=== PATIENT | female | born 1945 | race Caucasian/White ===

== ENCOUNTER 2020-12-18 13:01 | Inpatient (IN) | payer MEDICARE ==
[2020-12-18 13:47] LABS: Bacteria/HPF 4+ HPF (None Seen); Bilirubin Negative (Negative); Blood, Urine 3+ (Negative); Clarity Extra Turbid (Clear); Glucose, Urine (Dipstick) Normal (Negative); Ketone, Urine Negative (Negative); Leukocyte 500 Leu/uL (Negative); Nitrite Negative (Negative); Protein, Urine (Dipstick) 300 mg/dL (Neg-Trace); RBC/HPF Greater than 50 HPF (0-3); Specific Gravity, Urine 1.011 (1.002-1.036); Squamous Epithelial None Seen HPF (0-3); Urobilinogen Normal mg/dL (Less than 2); WBC/HPF Greater than 50 HPF (0-3)
[2020-12-18 14:08] LABS: Hemoglobin 12.2 g/dL (12.0-16.0); Mean Corpuscular HGB CONC 32.7 g/dL (32.0-36.0); Mean Corpuscular Hemoglobin 29.7 pg (27.0-31.0); Mean Platelet Volume 6.6 fL (7.4-10.4); Platelet Count 369 thou/uL (130-400); RBC Distribution Width 12.7 % (11.5-14.5); Red Blood Cell (RBC) Count 4.12 mill/uL (4.20-5.40); White Blood Cell (WBC) Count 20.5 thou/uL (4.8-10.8)
[2020-12-18 14:12] LABS: ALT (SGPT) 69 U/L (8-55); AST (SGOT) 133 U/L (5-34); Albumin 3.5 g/dL (3.4-4.8); Alkaline Phosphatase 169 U/L (40-110); Anion Gap 22 mmol/L (10-20); BUN (Urea Nitrogen) 45 mg/dL (9.8-20.1); Bilirubin, Total 0.4 mg/dL (0.2-1.2); Calc. Creatinine Clearance 0 mL/min (70-130); Calcium 8.8 mg/dL (7.8-10.44); Carbon Dioxide 19 mmol/L (23-31); Chloride 103 mmol/L (98-107); Globulin 2.9 g/dL (2.4-3.5); Glucose 144 mg/dL (83-110); Potassium 3.8 mmol/L (3.5-5.1); Protein, Total 6.4 g/dL (5.8-8.1); Sodium 140 mmol/L (136-145)
[2020-12-18 14:25] LABS: Band 38 % (5-11); Lymphocytes 7 % (21-51); MDiff Complete? YES; Monocytes 3 % (0-10); Neutrophil 48 % (42-75); Reactive Lymphocytes 3 % (0-10)
[2020-12-18 14:30] LABS: CK (CPK) 5973 U/L (29-168)
[2020-12-18] MEDS ORDERED: Ondansetron PF 4 MG/2 ML Vial IVP PRN (16:02)
[2020-12-18] MEDS ORDERED: Aspirin Chewable 81 MG TAB ONE (16:02)
[2020-12-18] MEDS ORDERED: Morphine 2 MG/ML VIAL SLOW IVP PRN (16:03)
[2020-12-18] MEDS ORDERED: Nitroglycerin 0.4 MG TAB (25 Tab Bottle) SL PRN (16:06)
[2020-12-18 19:01] LABS: Troponin I 1.987 ng/mL (< 0.028)
[2020-12-18 22:55] LABS: Critical Call Chem Troponin I DECREASING; Troponin I 1.808 ng/mL (< 0.028)
[2020-12-18] MEDS ORDERED: Melatonin 3 MG TAB PO SCH (23:45)
[2020-12-18] MEDS: Acetaminophen 325 MG TAB PO PRN (23:47)
[2020-12-18] MEDS: Sodium Chloride 0.9% 1,000 ML IV SCH (23:48)
[2020-12-19 03:28] LABS: SARS-CoV-2 NAA Rapid Test Not Detected (NotDetected)
[2020-12-19 05:04] LABS: #Lymphocytes 1.9 thou/uL (1.20-3.40); #Monocytes 0.8 thou/uL (0.11-0.59); #Neutrophils 12.8 thou/uL (1.40-6.50); %Basophils 0.1 % (0.0-1.0); %Eosinophils 0.1 % (0.0-10.0); %Monocytes 5.4 % (0.0-10.0); %Neutrophils 82.4 % (42.0-75.0); Hemoglobin 10.6 g/dL (12.0-16.0); Mean Corpuscular HGB CONC 33.4 g/dL (32.0-36.0); Mean Corpuscular Hemoglobin 30.2 pg (27.0-31.0); Mean Corpuscular Volume 90.4 fL (78.0-98.0); Mean Platelet Volume 6.6 fL (7.4-10.4); Platelet Count 358 thou/uL (130-400); RBC Distribution Width 12.7 % (11.5-14.5); Red Blood Cell (RBC) Count 3.52 mill/uL (4.20-5.40); White Blood Cell (WBC) Count 15.6 thou/uL (4.8-10.8)
[2020-12-19 05:19] LABS: ALT (SGPT) 76 U/L (8-55); AST (SGOT) 150 U/L (5-34); Alkaline Phosphatase 133 U/L (40-110); Anion Gap 13 mmol/L (10-20); BUN (Urea Nitrogen) 39 mg/dL (9.8-20.1); Bilirubin, Direct 0.2 mg/dL (0.1-0.3); Bilirubin, Total 0.3 mg/dL (0.2-1.2); Calc. Creatinine Clearance 49 mL/min (70-130); Calcium 8.6 mg/dL (7.8-10.44); Carbon Dioxide 25 mmol/L (23-31); Cardiac Risk 3.4 (Less than 4.5); Chloride 107 mmol/L (98-107); Cholesterol 171 mg/dl (< 200 Desired); Glucose 99 mg/dL (83-110); HDL Cholesterol 50 mg/dL (>60 Neg Risk); LDL Cholesterol, Calculated 97 mg/dL; Potassium 3.4 mmol/L (3.5-5.1); Protein, Total 5.9 g/dL (5.8-8.1); Sodium 142 mmol/L (136-145); Triglycerides 122 mg/dL (Less than 150)
[2020-12-19 05:32] LABS: CK (CPK) 5454 U/L (29-168)
[2020-12-19] MEDS: Sodium Chloride 0.9% 1,000 ML IV SCH ×3 (06:27→21:14)
[2020-12-19] MEDS: Potassium Chloride 20 MEQ TAB PO SCH ×2 (09:03→17:13)
[2020-12-19] MEDS: Aspirin 325 mg Enteric Coated Tablet PO SCH (13:37)
[2020-12-19] MEDS: Enoxaparin Sodium 40 MG/0.4 ML SYRINGE SC SCH (13:37)
[2020-12-19] MEDS ORDERED: Polyethylene Glycol 3350 17 GM Packet PO PRN (14:00)
[2020-12-19] MEDS: Melatonin 3 MG TAB PO PRN (21:10)
[2020-12-19] MEDS: HYDROcodone/Acetaminophen 5/325 mg Tablet PO PRN (21:10)
[2020-12-20 04:35] LABS: #Monocytes 0.6 thou/uL (0.11-0.59); #Neutrophils 10.5 thou/uL (1.40-6.50); %Basophils 0.3 % (0.0-1.0); %Eosinophils 0.3 % (0.0-10.0); %Lymphocytes 15.5 % (21.0-51.0); %Monocytes 4.8 % (0.0-10.0); %Neutrophils 79.1 % (42.0-75.0); Hemoglobin 10.8 g/dL (12.0-16.0); Mean Corpuscular HGB CONC 33.2 g/dL (32.0-36.0); Mean Corpuscular Hemoglobin 29.7 pg (27.0-31.0); Mean Corpuscular Volume 89.6 fL (78.0-98.0); Mean Platelet Volume 6.4 fL (7.4-10.4); Platelet Count 387 thou/uL (130-400); RBC Distribution Width 12.8 % (11.5-14.5); Red Blood Cell (RBC) Count 3.63 mill/uL (4.20-5.40); White Blood Cell (WBC) Count 13.2 thou/uL (4.8-10.8)
[2020-12-20] MEDS ORDERED: Electrolyte Replacement Protocol 1 EACH FS SCH (04:45)
[2020-12-20 04:58] LABS: ALT (SGPT) 81 U/L (8-55); AST (SGOT) 114 U/L (5-34); Alkaline Phosphatase 140 U/L (40-110); Anion Gap 14 mmol/L (10-20); BUN (Urea Nitrogen) 23 mg/dL (9.8-20.1); Bilirubin, Total 0.3 mg/dL (0.2-1.2); CK (CPK) 3032 U/L (29-168); Calc. Creatinine Clearance 66 mL/min (70-130); Calcium 8.3 mg/dL (7.8-10.44); Carbon Dioxide 22 mmol/L (23-31); Chloride 112 mmol/L (98-107); Globulin 3.1 g/dL (2.4-3.5); Glucose 119 mg/dL (83-110); Magnesium 1.9 mg/dL (1.6-2.6); Phosphorus 2.6 mg/dL (2.3-4.7); Potassium 3.8 mmol/L (3.5-5.1); Protein, Total 6.1 g/dL (5.8-8.1); Sodium 144 mmol/L (136-145)
[2020-12-20] MEDS ORDERED: Magnesium 2 GM/50 ML 2 GM in Premix Bag 1 BAG IVPB SCH (06:30)
[2020-12-20] MEDS: Sodium Chloride 0.9% 1,000 ML IV SCH (06:54)
[2020-12-20] MEDS: Multivit, Therapeutic 1 TAB PO SCH (08:21)
[2020-12-20] MEDS: Enoxaparin Sodium 40 MG/0.4 ML SYRINGE SC SCH (08:21)
[2020-12-20] MEDS: Potassium Chloride 20 MEQ TAB PO SCH ×2 (08:21→15:43)
[2020-12-20] MEDS: Aspirin 325 mg Enteric Coated Tablet PO SCH (08:21)
[2020-12-20] MEDS ORDERED: Communication Order-Pharmacy FS SCH (15:00)
[2020-12-20] MEDS: NS 0.9% w/ 20 MEQ KCL 1,000 ML IV SCH (15:42)
[2020-12-20] MEDS: Melatonin 3 MG TAB PO PRN (22:19)
[2020-12-20] MEDS: HYDROcodone/Acetaminophen 5/325 mg Tablet PO PRN (22:19)
[2020-12-21] MEDS ORDERED: Sodium Chloride 0.9% 250 ML IV SCH ×2 (00:01→13:15)
[2020-12-21 04:29] LABS: #Eosinphils 0.1 thou/uL (0.0-0.7); #Lymphocytes 2.2 thou/uL (1.20-3.40); #Monocytes 0.4 thou/uL (0.11-0.59); #Neutrophils 5.9 thou/uL (1.40-6.50); %Basophils 0.1 % (0.0-1.0); %Eosinophils 1.7 % (0.0-10.0); %Lymphocytes 25.3 % (21.0-51.0); %Neutrophils 68.9 % (42.0-75.0); Mean Corpuscular HGB CONC 33.5 g/dL (32.0-36.0); Mean Corpuscular Hemoglobin 30.1 pg (27.0-31.0); Mean Corpuscular Volume 89.8 fL (78.0-98.0); Mean Platelet Volume 6.4 fL (7.4-10.4); Platelet Count 338 thou/uL (130-400); RBC Distribution Width 12.9 % (11.5-14.5); Red Blood Cell (RBC) Count 3.31 mill/uL (4.20-5.40); White Blood Cell (WBC) Count 8.6 thou/uL (4.8-10.8)
[2020-12-21 04:49] LABS: ALT (SGPT) 65 U/L (8-55); AST (SGOT) 63 U/L (5-34); Albumin 2.8 g/dL (3.4-4.8); Alkaline Phosphatase 122 U/L (40-110); Anion Gap 11 mmol/L (10-20); BUN (Urea Nitrogen) 17 mg/dL (9.8-20.1); Bilirubin, Total 0.3 mg/dL (0.2-1.2); CK (CPK) 1521 U/L (29-168); Calc. Creatinine Clearance 74 mL/min (70-130); Calcium 7.8 mg/dL (7.8-10.44); Carbon Dioxide 22 mmol/L (23-31); Chloride 112 mmol/L (98-107); Globulin 2.8 g/dL (2.4-3.5); Glucose 103 mg/dL (83-110); Magnesium 2.1 mg/dL (1.6-2.6); Phosphorus 2.5 mg/dL (2.3-4.7); Potassium 3.9 mmol/L (3.5-5.1); Protein, Total 5.6 g/dL (5.8-8.1); Sodium 141 mmol/L (136-145)
[2020-12-21] MEDS: Aspirin 325 mg Enteric Coated Tablet PO SCH (05:53)
[2020-12-21] MEDS: Multivit, Therapeutic 1 TAB PO SCH (05:54)
[2020-12-21] MEDS: NS 0.9% w/ 20 MEQ KCL 1,000 ML IV SCH ×2 (07:05→12:08)
[2020-12-21] MEDS ORDERED: Iopamidol 370 76% 100 ML VIAL ONE (10:54)
[2020-12-21] MEDS ORDERED: Cyanocobalamin 1000 MCG/ML VIAL IM SCH (12:15)
[2020-12-21] MEDS ORDERED: Lidocaine 1% (PF) 30 ML VIAL ONE (12:26)
[2020-12-21] MEDS ORDERED: Fentanyl 100 MCG/2 ML VIAL ONE ×2 (12:52→13:08)
[2020-12-21] MEDS ORDERED: Midazolam HCl 2 mg/2 ml Vial ONE (12:52)
[2020-12-21] MEDS ORDERED: Acetaminophen/Codeine 30-300mg Tablet PO PRN (13:14)
[2020-12-21] MEDS ORDERED: Sodium Chloride 0.9% 200 ML IV PRN (13:14)
[2020-12-21] MEDS: Acetaminophen 325 MG TAB PO PRN (21:05)
[2020-12-21] MEDS: Melatonin 3 MG TAB PO PRN (21:05)
[2020-12-22] MEDS: Multivit, Therapeutic 1 TAB PO SCH (09:07)
[2020-12-22] MEDS: Aspirin 81 mg Enteric Coated Tablet PO SCH (09:07)
[2020-12-22] MEDS: Cyanocobalamin (Vitamin B-12) 1,000 MCG TAB PO SCH (09:07)
[2020-12-22] MEDS ORDERED: Simethicone Chewable 80 MG TAB PO PRN (12:22)
[2020-12-22] MEDS ORDERED: Polyethylene Glycol 3350 17 GM Packet PO PRN (12:22)
[2020-12-22] MEDS: Acetaminophen 325 MG TAB PO PRN (20:46)
[2020-12-22] MEDS: Melatonin 3 MG TAB PO PRN (20:46)
[2020-12-22] MEDS: Senokot S 8.6-50 MG TAB PO SCH (20:46)
[2020-12-23 04:56] LABS: #Eosinphils 0.2 thou/uL (0.0-0.7); #Lymphocytes 2.3 thou/uL (1.20-3.40); #Monocytes 0.7 thou/uL (0.11-0.59); #Neutrophils 5.8 thou/uL (1.40-6.50); %Basophils 0.3 % (0.0-1.0); %Eosinophils 1.9 % (0.0-10.0); %Lymphocytes 25.3 % (21.0-51.0); %Monocytes 7.6 % (0.0-10.0); %Neutrophils 64.9 % (42.0-75.0); Hemoglobin 11.2 g/dL (12.0-16.0); Mean Corpuscular HGB CONC 32.7 g/dL (32.0-36.0); Mean Corpuscular Hemoglobin 29.8 pg (27.0-31.0); Mean Platelet Volume 6.4 fL (7.4-10.4); Platelet Count 374 thou/uL (130-400); Red Blood Cell (RBC) Count 3.76 mill/uL (4.20-5.40); White Blood Cell (WBC) Count 8.9 thou/uL (4.8-10.8)
[2020-12-23 05:23] LABS: Phosphorus 3.7 mg/dL (2.3-4.7)
[2020-12-23 05:25] LABS: Anion Gap 13 mmol/L (10-20); BUN (Urea Nitrogen) 18 mg/dL (9.8-20.1); CK (CPK) 511 U/L (29-168); Calc. Creatinine Clearance 78 mL/min (70-130); Calcium 8.4 mg/dL (7.8-10.44); Carbon Dioxide 23 mmol/L (23-31); Chloride 107 mmol/L (98-107); Glucose 111 mg/dL (83-110); Magnesium 1.7 mg/dL (1.6-2.6); Potassium 3.5 mmol/L (3.5-5.1); Sodium 139 mmol/L (136-145)
[2020-12-23] MEDS ORDERED: Magnesium 2 GM/50 ML 2 GM in Premix Bag 1 BAG IVPB SCH ×2 (07:30)
[2020-12-23] MEDS ORDERED: Potassium Chloride 20 MEQ TAB PO SCH ×2 (07:30)
[2020-12-23] MEDS: Senokot S 8.6-50 MG TAB PO SCH ×2 (08:17→20:35)
[2020-12-23] MEDS: Aspirin 81 mg Enteric Coated Tablet PO SCH (08:19)
[2020-12-23] MEDS: Cyanocobalamin (Vitamin B-12) 1,000 MCG TAB PO SCH (08:20)
[2020-12-23] MEDS: Amiodarone 450 MG in Dextrose 5% in Water 250 ML IVPB SCH ×2 (08:34→17:23)
[2020-12-23] MEDS: Acetaminophen 325 MG TAB PO PRN ×2 (10:23→20:37)
[2020-12-23] MEDS: Multivit, Therapeutic 1 TAB PO SCH (11:26)
[2020-12-23] MEDS ORDERED: Enoxaparin Sodium 80 MG/0.8 ML SYRINGE SC SCH ×2 (18:00→21:00)
[2020-12-23] MEDS: Enoxaparin Sodium 80 MG/0.8 ML SYRINGE SC SCH ×2 (18:10→20:34)
[2020-12-23] MEDS: Melatonin 3 MG TAB PO PRN (20:36)
[2020-12-24 05:23] LABS: Hemoglobin 11.2 g/dL (12.0-16.0); Platelet Count 381 thou/uL (130-400)
[2020-12-24 05:25] LABS: #Eosinphils 0.2 thou/uL (0.0-0.7); #Lymphocytes 2.2 thou/uL (1.20-3.40); #Monocytes 0.7 thou/uL (0.11-0.59); #Neutrophils 6.5 thou/uL (1.40-6.50); %Basophils 0.4 % (0.0-1.0); %Eosinophils 2.4 % (0.0-10.0); %Lymphocytes 22.4 % (21.0-51.0); %Monocytes 7.6 % (0.0-10.0); %Neutrophils 67.3 % (42.0-75.0); Mean Corpuscular HGB CONC 33.1 g/dL (32.0-36.0); Mean Corpuscular Hemoglobin 30.2 pg (27.0-31.0); Mean Corpuscular Volume 91.4 fL (78.0-98.0); Mean Platelet Volume 6.6 fL (7.4-10.4); Platelet Count 372 thou/uL (130-400); RBC Distribution Width 13.2 % (11.5-14.5); Red Blood Cell (RBC) Count 3.65 mill/uL (4.20-5.40); White Blood Cell (WBC) Count 9.7 thou/uL (4.8-10.8)
[2020-12-24 05:45] LABS: Anion Gap 12 mmol/L (10-20); BUN (Urea Nitrogen) 21 mg/dL (9.8-20.1); Calc. Creatinine Clearance 75 mL/min (70-130); Carbon Dioxide 24 mmol/L (23-31); Chloride 104 mmol/L (98-107); Glucose 104 mg/dL (83-110); Magnesium 2.1 mg/dL (1.6-2.6); Phosphorus 3.4 mg/dL (2.3-4.7); Potassium 3.5 mmol/L (3.5-5.1); Sodium 136 mmol/L (136-145)
[2020-12-24] MEDS ORDERED: Potassium Chloride 20 MEQ TAB PO SCH ×3 (06:15→17:00)
[2020-12-24] MEDS ORDERED: Enoxaparin Sodium 80 MG/0.8 ML SYRINGE SC SCH (09:00)
[2020-12-24] MEDS: Senokot S 8.6-50 MG TAB PO SCH ×2 (09:39→20:49)
[2020-12-24] MEDS: Multivit, Therapeutic 1 TAB PO SCH (09:40)
[2020-12-24] MEDS: Aspirin 81 mg Enteric Coated Tablet PO SCH (09:40)
[2020-12-24] MEDS: Enoxaparin Sodium 80 MG/0.8 ML SYRINGE SC SCH ×2 (09:41→20:48)
[2020-12-24] MEDS: Cyanocobalamin (Vitamin B-12) 1,000 MCG TAB PO SCH (09:41)
[2020-12-24] MEDS: Amiodarone 450 MG in Dextrose 5% in Water 250 ML IVPB SCH (09:51)
[2020-12-24] MEDS ORDERED: Simethicone Chewable 80 MG TAB PO PRN (10:25)
[2020-12-24 14:14] VITALS: BMI 31.0
[2020-12-24] MEDS: Acetaminophen 325 MG TAB PO PRN (20:49)
[2020-12-24] MEDS: Melatonin 3 MG TAB PO PRN (20:50)
[2020-12-25] MEDS: Acetaminophen 325 MG TAB PO PRN (04:04)
[2020-12-25] MEDS: Enoxaparin Sodium 80 MG/0.8 ML SYRINGE SC SCH (08:26)
[2020-12-25] MEDS: Cyanocobalamin (Vitamin B-12) 1,000 MCG TAB PO SCH (08:27)
[2020-12-25] MEDS: Aspirin 81 mg Enteric Coated Tablet PO SCH (08:27)
[2020-12-25] MEDS: Multivit, Therapeutic 1 TAB PO SCH (08:27)
[2020-12-25] MEDS: Senokot S 8.6-50 MG TAB PO SCH (08:27)
[2020-12-25 16:05] VITALS: BP 119/59; TEMP 98.2
== END 2020-12-25 18:15 | DRG 871 ==
LOC: ERS 13:01 → ERHOLD 16:37 → 2NO 22:33
PROVIDERS: ADMIT Internal Medicine; ATTEND Internal Medicine
PROC: 4A023N7 Measurement of Cardiac Sampling and Pressure, Left Heart, Percutaneous Approach (ICD-10-PCS; principal; 2020-12-21)
PROC: B2111ZZ Fluoroscopy of Multiple Coronary Arteries using Low Osmolar Contrast (ICD-10-PCS; 2020-12-21)
PROC: B2151ZZ Fluoroscopy of Left Heart using Low Osmolar Contrast (ICD-10-PCS; 2020-12-21)
PROC: 0T9B70Z Drainage of Bladder with Drainage Device, Via Natural or Artificial Opening (ICD-10-PCS; 2020-12-21)
DX: A41.51 Sepsis due to Escherichia coli [E. coli] (principal); I21.A1 Myocardial infarction type 2; N17.9 Acute kidney failure, unspecified; M62.82 Rhabdomyolysis; I42.0 Dilated cardiomyopathy; N13.6 Pyonephrosis; I51.81 Takotsubo syndrome; R65.20 Severe sepsis without septic shock; Z20.822 Contact with and (suspected) exposure to COVID-19; R94.5 Abnormal results of liver function studies; R29.898 Other symptoms and signs involving the musculoskeletal system; N18.2 Chronic kidney disease, stage 2 (mild); M25.511 Pain in right shoulder; M25.521 Pain in right elbow; E53.8 Deficiency of other specified B group vitamins; I48.0 Paroxysmal atrial fibrillation; E66.9 Obesity, unspecified; R55 Syncope and collapse; E87.6 Hypokalemia; E83.42 Hypomagnesemia; Z85.41 Personal history of malignant neoplasm of cervix uteri; Z88.0 Allergy status to penicillin; Z90.89 Acquired absence of other organs; Z82.49 Family history of ischemic heart disease and other diseases of the circulatory system; Z68.31 Body mass index [BMI] 31.0-31.9, adult
CPT/HCPCS: 36415; 51701; 70450; 70551; 71045; 72125; 76770; 80048; 80053; 80061; 80076; 81003; 81015; 82550; 82553; 82607; 82746; 83735; 84100; 84484; 85014; 85018; 85025; 85049; 87077; 87086; 87186; 93005; 93010; 93306; 93458; 93798; 93880; 94760; 95816; 95819; 96365; 96366; 99152; J0282; J1650; J1956; J2001; J2250; J2405; J3010; J3420; J3475; J3480; J7070; Q9967; U0002

== ENCOUNTER 2021-09-05 21:54 | Inpatient (IN) | payer MEDICARE ==
[2021-09-05 22:53] LABS: #Eosinphils 0.1 thou/uL (0.0-0.7); #Monocytes 0.7 thou/uL (0.11-0.59); #Neutrophils 6.5 thou/uL (1.40-6.50); %Eosinophils 1.3 % (0.0-10.0); %Lymphocytes 21.2 % (21.0-51.0); %Monocytes 7.8 % (0.0-10.0); %Neutrophils 69.8 % (42.0-75.0); Hemoglobin 9.6 g/dL (12.0-16.0); Mean Corpuscular HGB CONC 33.2 g/dL (32.0-36.0); Mean Corpuscular Hemoglobin 31.4 pg (27.0-31.0); Mean Corpuscular Volume 94.5 fL (78.0-98.0); Mean Platelet Volume 5.9 fL (7.4-10.4); Platelet Count 316 thou/uL (130-400); RBC Distribution Width 11.4 % (11.5-14.5); Red Blood Cell (RBC) Count 3.05 mill/uL (4.20-5.40); White Blood Cell (WBC) Count 9.4 thou/uL (4.8-10.8)
[2021-09-05 23:14] LABS: ALT (SGPT) 12 U/L (8-55); AST (SGOT) 12 U/L (5-34); Albumin 3.7 g/dL (3.4-4.8); Alkaline Phosphatase 88 U/L (40-110); Anion Gap 10 mmol/L (10-20); BUN (Urea Nitrogen) 30 mg/dL (9.8-20.1); Bilirubin, Total 0.3 mg/dL (0.2-1.2); Calc. Creatinine Clearance 0 mL/min (70-130); Calcium 8.9 mg/dL (7.8-10.44); Carbon Dioxide 30 mmol/L (23-31); Chloride 101 mmol/L (98-107); Globulin 2.9 g/dL (2.4-3.5); Glucose 107 mg/dL (83-110); Potassium 3.9 mmol/L (3.5-5.1); Protein, Total 6.6 g/dL (5.8-8.1); Sodium 137 mmol/L (136-145)
[2021-09-05 23:14] LABS: Bilirubin Negative (Negative); Blood, Urine Large (Negative); Glucose, Urine (Dipstick) Negative (Negative); Ketone, Urine Negative (Negative); Leukocyte Negative (Negative); Nitrite Negative (Negative); Protein, Urine (Dipstick) > or equal to 300 mg/dL (Neg-Trace); Specific Gravity, Urine 1.025 (1.005-1.030); Urobilinogen 0.2 mg/dL (Less than 2); pH, Urine 7.5 (5.0-9.0)
[2021-09-05 23:16] LABS: Clarity Clear (Clear)
[2021-09-05 23:17] LABS: RBC/HPF Greater than 50 HPF (0-3)
[2021-09-05] MEDS ORDERED: cefTRIAXone\\ROCEPHIN 2 GM VIAL ONE (23:24)
[2021-09-06] MEDS ORDERED: Ondansetron ODT 4 MG TAB SL PRN (01:15)
[2021-09-06] MEDS ORDERED: Acetaminophen 325 MG TAB PO PRN (01:15)
[2021-09-06] MEDS ORDERED: Ondansetron PF 4 MG/2 ML Vial IVP PRN ×2 (01:15→08:39)
[2021-09-06 01:41] VITALS: BMI 25.7
[2021-09-06 07:21] LABS: #Eosinphils 0.1 thou/uL (0.0-0.7); #Lymphocytes 1.8 thou/uL (1.20-3.40); #Monocytes 0.7 thou/uL (0.11-0.59); #Neutrophils 5.3 thou/uL (1.40-6.50); %Basophils 0.2 % (0.0-1.0); %Lymphocytes 22.9 % (21.0-51.0); %Monocytes 8.4 % (0.0-10.0); %Neutrophils 67.6 % (42.0-75.0); Hemoglobin 8.5 g/dL (12.0-16.0); Mean Corpuscular HGB CONC 33.9 g/dL (32.0-36.0); Mean Corpuscular Hemoglobin 31.8 pg (27.0-31.0); Platelet Count 279 thou/uL (130-400); RBC Distribution Width 11.1 % (11.5-14.5); Red Blood Cell (RBC) Count 2.68 mill/uL (4.20-5.40); White Blood Cell (WBC) Count 7.9 thou/uL (4.8-10.8)
[2021-09-06 07:48] LABS: Anion Gap 14 mmol/L (10-20); BUN (Urea Nitrogen) 26 mg/dL (9.8-20.1); Calc. Creatinine Clearance 37 mL/min (70-130); Calcium 8.3 mg/dL (7.8-10.44); Carbon Dioxide 25 mmol/L (23-31); Chloride 103 mmol/L (98-107); Glucose 108 mg/dL (83-110); Potassium 3.8 mmol/L (3.5-5.1); Sodium 138 mmol/L (136-145)
[2021-09-06] MEDS ORDERED: Sodium Chloride 0.9% 500 ML IV SCH (08:30)
[2021-09-06] MEDS ORDERED: Ondansetron ODT 4 MG TAB PO PRN (08:39)
[2021-09-06 09:02] LABS: INR-International Normal Ratio 1.4; Prothrombin Time 17.3 sec (12.0-14.7)
[2021-09-06 12:09] LABS: Hemoglobin 8.5 g/dL (12.0-16.0)
[2021-09-06 12:33] LABS: SARS-CoV-2 PCR by NAA Not Detected (NotDetected)
[2021-09-06 17:52] LABS: Hemoglobin 7.8 g/dL (12.0-16.0)
[2021-09-06 20:18] LABS: Hemoglobin 7.8 g/dL (12.0-16.0)
[2021-09-06] MEDS: cefTRIAXone\\ROCEPHIN 1 GM in Sodium Chloride 0.9% 100 ML IVPB SCH (22:07)
[2021-09-06] MEDS: Melatonin 3 MG TAB PO PRN (22:15)
[2021-09-06] MEDS: Acetaminophen 325 MG TAB PO PRN (22:15)
[2021-09-07 01:00] LABS: Hemoglobin 7.2 g/dL (12.0-16.0)
[2021-09-07 06:48] LABS: #Lymphocytes 1.7 thou/uL (1.20-3.40); #Neutrophils 5.5 thou/uL (1.40-6.50); %Basophils 0.1 % (0.0-1.0); %Eosinophils 1.8 % (0.0-10.0); %Lymphocytes 21.2 % (21.0-51.0); %Monocytes 9.2 % (0.0-10.0); %Neutrophils 67.7 % (42.0-75.0); Mean Corpuscular HGB CONC 32.9 g/dL (32.0-36.0); Mean Corpuscular Hemoglobin 30.4 pg (27.0-31.0); Mean Corpuscular Volume 92.2 fL (78.0-98.0); Mean Platelet Volume 5.9 fL (7.4-10.4); Platelet Count 263 thou/uL (130-400); RBC Distribution Width 14.3 % (11.5-14.5); Red Blood Cell (RBC) Count 2.98 mill/uL (4.20-5.40); White Blood Cell (WBC) Count 8.1 thou/uL (4.8-10.8)
[2021-09-07 06:49] LABS: #Eosinphils 0.1 thou/uL (0.0-0.7); #Monocytes 0.8 thou/uL (0.11-0.59)
[2021-09-07 07:07] LABS: Anion Gap 12 mmol/L (10-20); BUN (Urea Nitrogen) 22 mg/dL (9.8-20.1); Calc. Creatinine Clearance 39 mL/min (70-130); Carbon Dioxide 25 mmol/L (23-31); Chloride 107 mmol/L (98-107); Glucose 93 mg/dL (83-110); Potassium 3.6 mmol/L (3.5-5.1); Sodium 140 mmol/L (136-145)
[2021-09-07 07:31] LABS: Platelet Count 261 thou/uL (130-400)
[2021-09-07] MEDS: Multivit, Therapeutic 1 TAB PO SCH (08:58)
[2021-09-07] MEDS: Cyanocobalamin (Vitamin B-12) 1,000 MCG TAB PO SCH (08:58)
[2021-09-07] MEDS: Senokot S 8.6-50 MG TAB PO SCH ×2 (08:59→20:14)
[2021-09-07] MEDS: cefTRIAXone\\ROCEPHIN 1 GM in Sodium Chloride 0.9% 100 ML IVPB SCH (20:14)
[2021-09-07] MEDS: Acetaminophen 325 MG TAB PO PRN (22:31)
[2021-09-07] MEDS: Melatonin 3 MG TAB PO PRN (22:31)
[2021-09-08] MEDS: Senokot S 8.6-50 MG TAB PO SCH (08:25)
[2021-09-08] MEDS: Multivit, Therapeutic 1 TAB PO SCH (08:25)
[2021-09-08] MEDS: Cyanocobalamin (Vitamin B-12) 1,000 MCG TAB PO SCH (08:25)
[2021-09-08 09:17] VITALS: BP 122/71; TEMP 97.9
== END 2021-09-08 17:49 | disposition home or self-care (01) | DRG 699 ==
LOC: ERS 21:54 → T4-B 09-06 00:01 → OBSVTOIN 09-06 08:39
PROVIDERS: ADMIT Internal Medicine; ATTEND Internal Medicine
PROC: 3E1K78Z Irrigation of Genitourinary Tract using Irrigating Substance, Via Natural or Artificial Opening (ICD-10-PCS; principal; 2021-09-06)
PROC: 30233N1 Transfusion of Nonautologous Red Blood Cells into Peripheral Vein, Percutaneous Approach (ICD-10-PCS; 2021-09-07)
DX: N30.41 Irradiation cystitis with hematuria (principal); D62 Acute posthemorrhagic anemia; I42.8 Other cardiomyopathies; I51.81 Takotsubo syndrome; N13.6 Pyonephrosis; Z20.822 Contact with and (suspected) exposure to COVID-19; Y84.2 Radiological procedure and radiotherapy as the cause of abnormal reaction of the patient, or of later complication, without mention of misadventure at the time of the procedure; I48.0 Paroxysmal atrial fibrillation; Z90.89 Acquired absence of other organs; Z79.01 Long term (current) use of anticoagulants; Z88.0 Allergy status to penicillin; Z79.82 Long term (current) use of aspirin; Z85.41 Personal history of malignant neoplasm of cervix uteri
CPT/HCPCS: 36415; 36430; 51701; 74176; 80048; 80053; 81003; 81015; 85014; 85018; 85025; 85610; 85730; 86850; 86900; 86901; 87086; 96365; G0378; J0696; J3490; P9016; U0003; U0005

== ENCOUNTER 2021-12-08 14:12 | Outpatient (CLI) | payer MEDICARE ==
[2021-12-08 15:10] LABS: Hemoglobin 10.9 g/dL (12.0-15.5); Mean Corpuscular HGB CONC 32.5 g/dL (32.0-36.0); Mean Corpuscular Hemoglobin 30.1 pg (27.0-33.0); Mean Corpuscular Volume 92.5 fl (81.6-98.3); Mean Platelet Volume 8.9 fl (7.4-10.4); Platelet Count 291 10x3/uL (150-450); RBC Distribution Width 12.3 % (11.5-14.5); Red Blood Cell (RBC) Count 3.62 10x6/uL (3.90-5.03); White Blood Cell (WBC) Count 8.1 10x3/uL (3.5-10.5)
[2021-12-08 15:17] LABS: Bilirubin Neg (Negative); Blood, Urine 250 (Negative); Clarity Slightly Cloudy (Clear); Glucose, Urine (Dipstick) Normal (Negative); Ketone, Urine Negative (Negative); Leukocyte 500 (Negative); Nitrite Positive (Negative); Protein, Urine (Dipstick) 15 mg/dl (Neg-Trace); Urobilinogen Normal mg/dL (Less than 2)
[2021-12-08 15:21] LABS: INR-International Normal Ratio 0.9; PTT 24.6 sec (22.0-33.0); Prothrombin Time 10.3 sec (9.5-12.1)
[2021-12-08 15:26] LABS: ALT (SGPT) 12 U/L (8-55); AST (SGOT) 14 U/L (5-34); Alkaline Phosphatase 92 U/L (40-110); Anion Gap 13 mmol/L (10-20); BUN (Urea Nitrogen) 27 mg/dL (9.8-20.1); Bilirubin, Total 0.3 mg/dL (0.2-1.2); Calc. Creatinine Clearance 0 mL/min (70-130); Calcium 9.2 mg/dL (7.8-10.44); Carbon Dioxide 29 mmol/L (23-31); Chloride 102 mmol/L (98-107); Globulin 2.4 g/dL (2.4-3.5); Glucose 97 mg/dL (83-110); Potassium 3.9 mmol/L (3.5-5.1); Protein, Total 6.4 g/dL (5.8-8.1); Sodium 140 mmol/L (136-145)
[2021-12-09 08:39] LABS: SARS-CoV-2 PCR by NAA Not Detected (NotDetected)
== END 2021-12-08 14:13 | disposition home or self-care (01) ==
LOC: LABBT 14:12
PROVIDERS: ATTEND Internal Medicine Cardiovascular Disease
DX: Z01.818 Encounter for other preprocedural examination (principal); I48.0 Paroxysmal atrial fibrillation; R31.9 Hematuria, unspecified; Z20.822 Contact with and (suspected) exposure to COVID-19
CPT/HCPCS: 80053; 81003; 85027; 85610; 85730; 86850; 86870; 86900; 86901; 86920; 93005; U0003; U0005; 86905; 93010

== ENCOUNTER 2021-12-08 14:15 | Inpatient (IN) | payer MEDICARE ==
[2021-12-08 11:46] VITALS: BMI 27.4
[2021-12-13] MEDS ORDERED: Iopamidol 370 76% 100 ML VIAL ONE (08:46)
[2021-12-13] MEDS ORDERED: Protamine Sulfate 50 MG/5 ML VIAL ONE (12:51)
[2021-12-13] MEDS ORDERED: Heparin 10,000 UNITS/ 10 ML VIAL ONE (12:51)
[2021-12-13] MEDS ORDERED: Clindamycin/D5W 900 mg/50 ml Premix Bag ONE (12:51)
[2021-12-13] MEDS ORDERED: Glycopyrrolate 0.2 MG/ML 5 ML SYRINGE ONE (13:52)
[2021-12-13] MEDS ORDERED: PROPOFOL 200 MG/20 ML VIAL ONE (13:52)
[2021-12-13] MEDS ORDERED: Rocuronium Bromide 10 MG/ML (10ML VIAL) ONE (13:52)
[2021-12-13] MEDS ORDERED: Lidocaine 1% PF 5 ML VIAL ONE (13:52)
[2021-12-13] MEDS ORDERED: PHENYLEPHRINE-NS 100 MCG/ML 10 ML SYRINGE ONE (13:52)
[2021-12-13] MEDS ORDERED: Ketorolac Tromethamine 30 MG/ML VIAL ONE (13:52)
[2021-12-13] MEDS ORDERED: ePHEDrine 50 MG/ML VIAL ONE (13:52)
[2021-12-13] MEDS ORDERED: Ondansetron PF 4 MG/2 ML Vial ONE (13:52)
[2021-12-13] MEDS ORDERED: Dexamethasone 20 MG/5 ML VIAL ONE (13:52)
== END 2021-12-13 19:22 | disposition home or self-care (01) | DRG 274 ==
LOC: SURG A 12-13 10:12 → EDSTATUS 12-13 14:15
PROVIDERS: ADMIT Internal Medicine Cardiovascular Disease; ATTEND Internal Medicine Cardiovascular Disease
PROC: 02L73DK Occlusion of Left Atrial Appendage with Intraluminal Device, Percutaneous Approach (ICD-10-PCS; principal; 2021-12-13)
PROC: B24BZZ4 Ultrasonography of Heart with Aorta, Transesophageal (ICD-10-PCS; 2021-12-13)
DX: I48.0 Paroxysmal atrial fibrillation (principal); I31.3 Pericardial effusion (noninflammatory); Z00.6 Encounter for examination for normal comparison and control in clinical research program; I34.0 Nonrheumatic mitral (valve) insufficiency; I50.9 Heart failure, unspecified; I42.8 Other cardiomyopathies; E66.9 Obesity, unspecified; N18.2 Chronic kidney disease, stage 2 (mild); Z88.0 Allergy status to penicillin; Z79.899 Other long term (current) drug therapy; Z79.01 Long term (current) use of anticoagulants; Z85.41 Personal history of malignant neoplasm of cervix uteri; Z92.3 Personal history of irradiation; Z87.440 Personal history of urinary (tract) infections; Z90.89 Acquired absence of other organs; I25.2 Old myocardial infarction; Z68.27 Body mass index [BMI] 27.0-27.9, adult
CPT/HCPCS: 33340; 36415; 36430; 85347; 86850; 86900; 86901; 86922; 93306; 93312; 93662; C1759; J1100; J1644; J1885; J2405; J2704; J2720; J3490; Q9967

== ENCOUNTER 2022-01-19 13:40 | Outpatient (CLI) | payer MEDICARE ==
[2022-01-19 14:46] LABS: Hemoglobin 11.2 g/dL (12.0-15.5); Mean Corpuscular HGB CONC 32.7 g/dL (32.0-36.0); Mean Corpuscular Hemoglobin 29.7 pg (27.0-33.0); Mean Platelet Volume 9.2 fl (7.4-10.4); Platelet Count 276 10x3/uL (150-450); RBC Distribution Width 13.1 % (11.5-14.5); Red Blood Cell (RBC) Count 3.77 10x6/uL (3.90-5.03); White Blood Cell (WBC) Count 8.3 10x3/uL (3.5-10.5)
[2022-01-19 15:01] LABS: Anion Gap 13 mmol/L (10-20); BUN (Urea Nitrogen) 32 mg/dL (9.8-20.1); Calc. Creatinine Clearance 0 mL/min (70-130); Calcium 9.2 mg/dL (7.8-10.44); Carbon Dioxide 30 mmol/L (23-31); Chloride 102 mmol/L (98-107); Glucose 103 mg/dL (83-110); Potassium 4.3 mmol/L (3.5-5.1); Sodium 141 mmol/L (136-145)
== END 2022-01-19 13:41 | disposition home or self-care (01) ==
LOC: LABBT 13:40
PROVIDERS: ATTEND Internal Medicine Cardiovascular Disease
DX: Z01.812 Encounter for preprocedural laboratory examination (principal); I48.0 Paroxysmal atrial fibrillation; Z20.822 Contact with and (suspected) exposure to COVID-19
CPT/HCPCS: 80048; 85027; U0003; U0005

== ENCOUNTER 2022-01-21 06:24 | Day surgery (SDC) | payer MEDICARE ==
[2022-01-18 11:07] VITALS: BMI 26.5
[2022-01-21] MEDS ORDERED: PROPOFOL 200 MG/20 ML VIAL ONE (09:08)
== END 2022-01-21 10:00 | disposition home or self-care (01) ==
LOC: SDC 06:24
PROVIDERS: ATTEND Internal Medicine Cardiovascular Disease
PROC: B24BZZ4 Ultrasonography of Heart with Aorta, Transesophageal (ICD-10-PCS; principal; 2022-01-21)
DX: I48.0 Paroxysmal atrial fibrillation (principal); N18.2 Chronic kidney disease, stage 2 (mild); I25.2 Old myocardial infarction; M62.82 Rhabdomyolysis; Z79.01 Long term (current) use of anticoagulants; Z79.899 Other long term (current) drug therapy; Z88.0 Allergy status to penicillin
CPT/HCPCS: 93312; J2704

== ENCOUNTER 2022-04-07 06:25 | Observation (INO) | payer MEDICARE, OTHER ==
[2022-04-07] MEDS ORDERED: Digoxin 0.5 MG/2 ML AMP ONE (06:38)
[2022-04-07] MEDS ORDERED: Metoprolol Tartrate 5 MG/5 ML VIAL ONE (06:56)
[2022-04-07 07:30] LABS: #Eosinphils 0.1 thou/uL (0.0-0.7); #Lymphocytes 1.7 thou/uL (1.20-3.40); #Monocytes 0.5 thou/uL (0.11-0.59); #Neutrophils 5.1 thou/uL (1.40-6.50); %Basophils 0.5 % (0.0-1.0); %Eosinophils 0.8 % (0.0-10.0); %Lymphocytes 22.5 % (21.0-51.0); %Monocytes 6.7 % (0.0-10.0); %Neutrophils 69.5 % (42.0-75.0); Hemoglobin 11.1 g/dL (12.0-16.0); Mean Corpuscular HGB CONC 32.7 g/dL (32.0-36.0); Mean Corpuscular Hemoglobin 31.4 pg (27.0-31.0); Mean Corpuscular Volume 96.1 fL (78.0-98.0); Mean Platelet Volume 7.1 fL (7.4-10.4); Platelet Count 229 thou/uL (130-400); RBC Distribution Width 12.1 % (11.5-14.5); Red Blood Cell (RBC) Count 3.52 mill/uL (4.20-5.40); White Blood Cell (WBC) Count 7.3 thou/uL (4.8-10.8)
[2022-04-07] MEDS ORDERED: Ondansetron PF 4 MG/2 ML Vial ONE (07:50)
[2022-04-07 07:55] LABS: ALT (SGPT) 16 U/L (8-55); AST (SGOT) 15 U/L (5-34); Albumin 3.5 g/dL (3.4-4.8); Alkaline Phosphatase 100 U/L (40-110); Anion Gap 20 mmol/L (10-20); BUN (Urea Nitrogen) 38 mg/dL (9.8-20.1); Bilirubin, Total 0.6 mg/dL (0.2-1.2); Calc. Creatinine Clearance 0 mL/min (70-130); Calcium 8.8 mg/dL (7.8-10.44); Carbon Dioxide 22 mmol/L (23-31); Chloride 103 mmol/L (98-107); Estimated GFR 65; Globulin 2.6 g/dL (2.4-3.5); Glucose 106 mg/dL (83-110); Lipase 32 U/L (8-78); Protein, Total 6.1 g/dL (5.8-8.1); Sodium 142 mmol/L (136-145)
[2022-04-07 08:22] LABS: PTT 33.7 sec (22.9-36.1); Prothrombin Time 13.6 sec (12.0-14.7)
[2022-04-07] MEDS ORDERED: Potassium Chloride 20 MEQ TAB ONE (10:01)
[2022-04-07] MEDS ORDERED: Acetaminophen 325 MG TAB PO PRN (10:21)
[2022-04-07] MEDS ORDERED: Bisacodyl 5 MG TAB PO PRN (10:21)
[2022-04-07] MEDS: Potassium Chloride 20 MEQ TAB PO SCH ×2 (10:23→16:04)
[2022-04-07 11:21] LABS: SARS-CoV-2 NAA Rapid Test Not Detected (NotDetected)
[2022-04-07 11:45] LABS: Troponin I 0.037 ng/mL (< 0.028)
[2022-04-07 14:08] LABS: Troponin I 0.053 ng/mL (< 0.028)
[2022-04-07 14:44] VITALS: BMI 26.2
[2022-04-07] MEDS ORDERED: Apixaban 5 MG TAB PO SCH (21:00)
[2022-04-07] MEDS ORDERED: Melatonin 3 MG TAB PO PRN (22:20)
[2022-04-08 05:34] LABS: #Eosinphils 0.1 thou/uL (0.0-0.7); #Monocytes 0.6 thou/uL (0.11-0.59); #Neutrophils 4.7 thou/uL (1.40-6.50); %Basophils 0.1 % (0.0-1.0); %Eosinophils 1.5 % (0.0-10.0); %Lymphocytes 26.7 % (21.0-51.0); %Monocytes 7.7 % (0.0-10.0); %Neutrophils 64.1 % (42.0-75.0); Mean Corpuscular HGB CONC 32.5 g/dL (32.0-36.0); Mean Corpuscular Hemoglobin 30.9 pg (27.0-31.0); Mean Corpuscular Volume 95.1 fL (78.0-98.0); Mean Platelet Volume 7.1 fL (7.4-10.4); Platelet Count 227 thou/uL (130-400); RBC Distribution Width 12.1 % (11.5-14.5); Red Blood Cell (RBC) Count 3.25 mill/uL (4.20-5.40); White Blood Cell (WBC) Count 7.4 thou/uL (4.8-10.8)
[2022-04-08 05:58] LABS: Anion Gap 13 mmol/L (10-20); BUN (Urea Nitrogen) 24 mg/dL (9.8-20.1); Calc. Creatinine Clearance 63 mL/min (70-130); Calcium 8.7 mg/dL (7.8-10.44); Carbon Dioxide 26 mmol/L (23-31); Chloride 107 mmol/L (98-107); Estimated GFR 76; Glucose 91 mg/dL (83-110); Potassium 4.2 mmol/L (3.5-5.1); Sodium 142 mmol/L (136-145)
[2022-04-08] MEDS ORDERED: Cholecalciferol 1,000 UNITS (25 MCG) TAB PO SCH (09:00)
[2022-04-08] MEDS ORDERED: Clopidogrel Bisulfate 75 MG TAB PO SCH (09:00)
[2022-04-08] MEDS ORDERED: Multivit, Therapeutic 1 TAB PO SCH (09:00)
[2022-04-08] MEDS ORDERED: Electrolyte Replacement Protocol 1 EACH FS SCH (09:15)
[2022-04-08 09:23] LABS: Magnesium 1.8 mg/dL (1.6-2.6)
[2022-04-08] MEDS ORDERED: Magnesium 2 GM/50 ML(in water) 2 GM in Premix Bag 1 BAG IVPB SCH (10:30)
[2022-04-08 13:02] VITALS: BP 129/59; TEMP 97.9
== END 2022-04-08 15:05 | disposition home or self-care (01) ==
LOC: ERS 06:25 → ERHOLD 08:56 → INTOOBSV 08:56 → 2SW 14:15
PROVIDERS: ADMIT Internal Medicine; ATTEND Internal Medicine
DX: I48.0 Paroxysmal atrial fibrillation (principal); E87.6 Hypokalemia; E83.42 Hypomagnesemia; I51.81 Takotsubo syndrome; R53.1 Weakness; I25.2 Old myocardial infarction; N18.2 Chronic kidney disease, stage 2 (mild); D63.1 Anemia in chronic kidney disease; Z66 Do not resuscitate; Z85.41 Personal history of malignant neoplasm of cervix uteri; Z79.02 Long term (current) use of antithrombotics/antiplatelets; Z79.899 Other long term (current) drug therapy; Z88.0 Allergy status to penicillin; Z95.818 Presence of other cardiac implants and grafts; Z20.822 Contact with and (suspected) exposure to COVID-19
CPT/HCPCS: 71045; 80048; 83690; 83735; 83880; 84484 ×2; 85025; 85610; 85730; 93005; 96375; G0378 ×3; U0002; 36415; 80053; 84443; J1160; J2405; J3475

== ENCOUNTER 2023-06-08 13:06 | Inpatient (IN) | payer MEDICARE, OTHER ==
[~2023-06-08 13:06] MED LIST: Iopamidol-370 76% 500 ML MDV (1 ML CHARGE) ONE
[2023-06-08 14:16] LABS: #Monocytes 0.6 thou/uL (0.11-0.59); #Neutrophils 7.6 thou/uL (1.40-6.50); %Basophils 0.1 % (0.0-1.0); %Lymphocytes 8.3 % (21.0-51.0); %Monocytes 7.1 % (0.0-10.0); %Neutrophils 84.1 % (42.0-75.0); Hematocrit 36.4 % (36.0-47.0); Hemoglobin 12.5 g/dL (12.0-16.0); Mean Corpuscular HGB CONC 34.3 g/dL (32.0-36.0); Mean Corpuscular Hemoglobin 31.9 pg (27.0-31.0); Mean Corpuscular Volume 92.9 fl (78.0-98.0); Mean Platelet Volume 8.3 fL (7.4-10.4); Platelet Count 249 10x3/uL (130-400); RBC Distribution Width 11.9 % (11.5-14.5); Red Blood Cell (RBC) Count 3.92 mill/uL (4.20-5.40); White Blood Cell (WBC) Count 9.1 10x3/uL (4.8-10.8)
[2023-06-08] MEDS ORDERED: Acetaminophen 500 MG TAB ONE (14:31)
[2023-06-08 14:43] LABS: Troponin I 0.013 ng/mL (< 0.028)
[2023-06-08 14:47] LABS: ALT (SGPT) 19 U/L (8-55); AST (SGOT) 22 U/L (5-34); Albumin 4.3 g/dL (3.4-4.8); Alkaline Phosphatase 151 U/L (40-110); Anion Gap 12 mmol/L (10-20); BUN (Urea Nitrogen) 17 mg/dL (9.8-20.1); Bilirubin, Total 0.8 mg/dL (0.2-1.2); Calc. Creatinine Clearance 0 mL/min (70-130); Calcium 9.5 mg/dL (7.8-10.44); Carbon Dioxide 28 mmol/L (23-31); Chloride 99 mmol/L (98-107); Estimated GFR 79; Globulin 2.6 g/dL (2.4-3.5); Glucose 110 mg/dL (83-110); Potassium 3.8 mmol/L (3.5-5.1); Protein, Total 6.9 g/dL (5.8-8.1); Sodium 135 mmol/L (136-145)
[2023-06-08 15:44] LABS: Bilirubin Negative (Negative); Blood, Urine 3+ (Negative); CAUTI Indications for Culture Dysuria,urgency,freq; Clarity Turbid (Clear); Glucose, Urine (Dipstick) Normal (Negative); Ketone, Urine 40 mg/dL (Negative); Leukocyte 500 Leu/uL (Negative); Nitrite 1+ (Negative); Protein, Urine (Dipstick) 70 mg/dL (Neg-Trace); RBC/HPF Greater than 50 HPF (0-3); Specific Gravity, Urine 1.017 (1.002-1.036); Squamous Epithelial None Seen HPF (0-3); Urobilinogen Normal mg/dL (Less than 2); WBC/HPF Greater than 50 HPF (0-3); pH, Urine 6.5 (5.0-9.0)
[2023-06-08 15:50] LABS: Bacteria/HPF 1+ HPF (None Seen)
[2023-06-08 15:52] LABS: Urine Culture Reflex Yes Yes
[2023-06-08] MEDS ORDERED: Sodium Chloride 0.9% 100 ML ONE (17:51)
[2023-06-08] MEDS ORDERED: cefTRIAXone (ROCEPHIN) 1 GM VIAL ONE (17:51)
[2023-06-08] MEDS: cefTRIAXone\\ROCEPHIN 1 GM in Sodium Chloride 0.9% 100 ML IVPB SCH (20:34)
[2023-06-08] MEDS: Sacubitril 24MG/Valsartan 26 MG TAB PO SCH (20:35)
[2023-06-08] MEDS: Flecainide 50 MG TAB PO SCH (20:35)
[2023-06-08] MEDS ORDERED: Bisacodyl 5 MG TAB PO PRN (21:49)
[2023-06-08] MEDS ORDERED: HYDROcodone/Acetaminophen 5/325 mg Tablet PO PRN (21:49)
[2023-06-08] MEDS ORDERED: Acetaminophen 325 MG TAB PO PRN (21:49)
[2023-06-09 04:42] LABS: #Monocytes 0.5 thou/uL (0.11-0.59); #Neutrophils 4.8 thou/uL (1.40-6.50); %Basophils 0.5 % (0.0-1.0); %Eosinophils 0.6 % (0.0-10.0); %Lymphocytes 17.5 % (21.0-51.0); %Neutrophils 73.2 % (42.0-75.0); Hemoglobin 10.8 g/dL (12.0-16.0); Mean Corpuscular HGB CONC 33.8 g/dL (32.0-36.0); Mean Corpuscular Hemoglobin 32.1 pg (27.0-31.0); Mean Corpuscular Volume 95.2 fl (78.0-98.0); Mean Platelet Volume 8.7 fL (7.4-10.4); Platelet Count 211 10x3/uL (130-400); Red Blood Cell (RBC) Count 3.36 mill/uL (4.20-5.40); White Blood Cell (WBC) Count 6.5 10x3/uL (4.8-10.8)
[2023-06-09 05:04] LABS: Anion Gap 14 mmol/L (10-20); BUN (Urea Nitrogen) 16 mg/dL (9.8-20.1); Calc. Creatinine Clearance 0 mL/min (70-130); Calcium 8.5 mg/dL (7.8-10.44); Carbon Dioxide 25 mmol/L (23-31); Chloride 105 mmol/L (98-107); Estimated GFR 84; Glucose 100 mg/dL (83-110); Potassium 3.7 mmol/L (3.5-5.1); Sodium 140 mmol/L (136-145)
[2023-06-09] MEDS: Sacubitril 24MG/Valsartan 26 MG TAB PO SCH ×2 (08:56→20:37)
[2023-06-09] MEDS: Midodrine HCl 5 MG TAB PO SCH (08:57)
[2023-06-09] MEDS: Flecainide 50 MG TAB PO SCH ×2 (08:58→20:37)
[2023-06-09 12:07] VITALS: BMI 24.0
[2023-06-09] MEDS ORDERED: Ipratropium/Albuterol 3 ML NEB NEB PRN (15:49)
[2023-06-09] MEDS: cefTRIAXone\\ROCEPHIN 1 GM in Sodium Chloride 0.9% 100 ML IVPB SCH (17:50)
[2023-06-09] MEDS: guaiFENesin/DM ER PO SCH (20:37)
[2023-06-10] MEDS: Midodrine HCl 5 MG TAB PO SCH (09:00)
[2023-06-10] MEDS: Flecainide 50 MG TAB PO SCH ×2 (09:00→20:36)
[2023-06-10] MEDS: Sacubitril 24MG/Valsartan 26 MG TAB PO SCH ×2 (09:01→20:36)
[2023-06-10] MEDS: guaiFENesin/DM ER PO SCH ×2 (10:33→20:36)
[2023-06-10] MEDS: cefTRIAXone\\ROCEPHIN 1 GM in Sodium Chloride 0.9% 100 ML IVPB SCH (17:36)
[2023-06-10 18:30] LABS: SARS-CoV-2 NAA Rapid Test Not Detected (NotDetected)
[2023-06-10] MEDS: Clopidogrel Bisulfate 75 MG TAB PO SCH (20:36)
[2023-06-11 05:09] LABS: Hematocrit 31.4 % (36.0-47.0); Hemoglobin 10.6 g/dL (12.0-16.0); Mean Corpuscular HGB CONC 33.8 g/dL (32.0-36.0); Mean Corpuscular Hemoglobin 31.7 pg (27.0-31.0); Mean Platelet Volume 8.6 fL (7.4-10.4); Platelet Count 208 10x3/uL (130-400); RBC Distribution Width 11.8 % (11.5-14.5); Red Blood Cell (RBC) Count 3.34 mill/uL (4.20-5.40); White Blood Cell (WBC) Count 7.3 10x3/uL (4.8-10.8)
[2023-06-11 05:16] LABS: Delete Auto Diff?? YES; Manual Diff?? YES
[2023-06-11 05:36] LABS: Anion Gap 12 mmol/L (10-20); BUN (Urea Nitrogen) 14 mg/dL (9.8-20.1); Calc. Creatinine Clearance 66 mL/min (70-130); Calcium 8.7 mg/dL (7.8-10.44); Carbon Dioxide 27 mmol/L (23-31); Chloride 102 mmol/L (98-107); Estimated GFR 89; Glucose 95 mg/dL (83-110); Magnesium 1.9 mg/dL (1.6-2.6); Sodium 138 mmol/L (136-145)
[2023-06-11 05:39] LABS: Band 3 % (5-11); CellaVision Operator ID LAB.CLH1; Eosinophils 1 % (0-10); Hypochromia SLIGHT = 6-15 cells HPF (0-5); Lymphocytes 17 % (21-51); Monocytes 8 % (0-10); Neutrophil 71 % (42-75); Platelet Adequacy Comment Platelets Normal; Polychromasia SLIGHT = 2-3 cells HPF (0-2); Total Cell Count 101
[2023-06-11] MEDS ORDERED: Electrolyte Replacement Protocol 1 EACH FS SCH (08:00)
[2023-06-11] MEDS ORDERED: Potassium Chloride 20 MEQ TAB PO SCH (08:15)
[2023-06-11] MEDS ORDERED: Magnesium 2 GM/50 ML(in water) 2 GM in Premix 1 BAG IVPB SCH (08:30)
[2023-06-11] MEDS: Midodrine HCl 5 MG TAB PO SCH (09:11)
[2023-06-11] MEDS: Flecainide 50 MG TAB PO SCH ×2 (09:12→20:28)
[2023-06-11] MEDS: guaiFENesin/DM ER PO SCH ×2 (09:13→20:28)
[2023-06-11] MEDS: Sacubitril 24MG/Valsartan 26 MG TAB PO SCH ×2 (09:13→20:29)
[2023-06-11] MEDS: cefTRIAXone\\ROCEPHIN 1 GM in Sodium Chloride 0.9% 100 ML IVPB SCH (16:54)
[2023-06-11] MEDS: Clopidogrel Bisulfate 75 MG TAB PO SCH (20:28)
[2023-06-11] MEDS: Cefdinir 300 MG CAP PO SCH (20:28)
[2023-06-11] MEDS: metroNIDAZOLE 500 MG TAB PO SCH (20:28)
[2023-06-12 07:43] LABS: Hematocrit 33.2 % (36.0-47.0); Hemoglobin 11.2 g/dL (12.0-16.0); Mean Corpuscular HGB CONC 33.7 g/dL (32.0-36.0); Mean Corpuscular Hemoglobin 31.2 pg (27.0-31.0); Mean Corpuscular Volume 92.5 fl (78.0-98.0); Mean Platelet Volume 8.4 fL (7.4-10.4); Platelet Count 246 10x3/uL (130-400); RBC Distribution Width 11.9 % (11.5-14.5); Red Blood Cell (RBC) Count 3.59 mill/uL (4.20-5.40); White Blood Cell (WBC) Count 7.3 10x3/uL (4.8-10.8)
[2023-06-12 07:44] LABS: Delete Auto Diff?? YES; Manual Diff?? YES
[2023-06-12 08:02] LABS: Anion Gap 9 mmol/L (10-20); BUN (Urea Nitrogen) 12 mg/dL (9.8-20.1); Calc. Creatinine Clearance 70 mL/min (70-130); Calcium 8.7 mg/dL (7.8-10.44); Carbon Dioxide 30 mmol/L (23-31); Chloride 103 mmol/L (98-107); Estimated GFR 91; Glucose 96 mg/dL (83-110); Magnesium 2.1 mg/dL (1.6-2.6); Potassium 3.7 mmol/L (3.5-5.1); Sodium 138 mmol/L (136-145)
[2023-06-12 08:27] LABS: Band 2 % (5-11); CellaVision Operator ID LAB.GE; Lymphocytes 22 % (21-51); Monocytes 4 % (0-10); Neutrophil 71 % (42-75); Platelet Adequacy Comment Platelets Normal; Reactive Lymphocytes 1 % (0-10); Total Cell Count 100
[2023-06-12] MEDS ORDERED: FLU VACC QS2023(65UP)/MF59C/PF 60 MCG/0.5 ML SYRINGE IM ONE (09:00)
[2023-06-12] MEDS: metroNIDAZOLE 500 MG TAB PO SCH ×3 (09:24→20:25)
[2023-06-12] MEDS: Cefdinir 300 MG CAP PO SCH ×2 (09:24→20:25)
[2023-06-12] MEDS: Midodrine HCl 5 MG TAB PO SCH (09:24)
[2023-06-12] MEDS: Flecainide 50 MG TAB PO SCH ×2 (09:24→20:24)
[2023-06-12] MEDS: Sacubitril 24MG/Valsartan 26 MG TAB PO SCH ×2 (09:25→20:25)
[2023-06-12] MEDS: guaiFENesin/DM ER PO SCH ×2 (09:26→20:26)
[2023-06-12] MEDS: HYDROcodone/Acetaminophen 5/325 mg Tablet PO PRN (14:14)
[2023-06-12] MEDS: Benzonatate 100 MG CAP PO SCH ×2 (14:14→20:25)
[2023-06-12] MEDS: Clopidogrel Bisulfate 75 MG TAB PO SCH (20:25)
[2023-06-13] MEDS: HYDROcodone/Acetaminophen 5/325 mg Tablet PO PRN (03:19)
[2023-06-13 05:40] LABS: #Eosinphils 0.1 thou/uL (0.0-0.7); #Monocytes 0.5 thou/uL (0.11-0.59); #Neutrophils 6.6 thou/uL (1.40-6.50); %Basophils 0.2 % (0.0-1.0); %Eosinophils 0.9 % (0.0-10.0); %Lymphocytes 19.3 % (21.0-51.0); %Monocytes 5.9 % (0.0-10.0); %Neutrophils 72.7 % (42.0-75.0); Hemoglobin 11.3 g/dL (12.0-16.0); Mean Corpuscular HGB CONC 34.2 g/dL (32.0-36.0); Mean Corpuscular Hemoglobin 31.5 pg (27.0-31.0); Mean Corpuscular Volume 91.9 fl (78.0-98.0); Mean Platelet Volume 8.5 fL (7.4-10.4); Platelet Count 314 10x3/uL (130-400); RBC Distribution Width 11.7 % (11.5-14.5); Red Blood Cell (RBC) Count 3.59 mill/uL (4.20-5.40)
[2023-06-13 06:10] LABS: Anion Gap 14 mmol/L (10-20); BUN (Urea Nitrogen) 15 mg/dL (9.8-20.1); Calc. Creatinine Clearance 75 mL/min (70-130); Calcium 8.6 mg/dL (7.8-10.44); Carbon Dioxide 23 mmol/L (23-31); Chloride 103 mmol/L (98-107); Estimated GFR 92; Glucose 115 mg/dL (83-110); Magnesium 2.1 mg/dL (1.6-2.6); Potassium 3.7 mmol/L (3.5-5.1); Sodium 136 mmol/L (136-145)
[2023-06-13] MEDS: Cefdinir 300 MG CAP PO SCH ×2 (08:25→22:09)
[2023-06-13] MEDS: Benzonatate 100 MG CAP PO SCH ×3 (08:28→22:09)
[2023-06-13] MEDS: metroNIDAZOLE 500 MG TAB PO SCH (08:28)
[2023-06-13] MEDS: Midodrine HCl 5 MG TAB PO SCH (08:31)
[2023-06-13] MEDS: Flecainide 50 MG TAB PO SCH ×2 (08:33→22:08)
[2023-06-13] MEDS: Sacubitril 24MG/Valsartan 26 MG TAB PO SCH ×2 (08:34→22:08)
[2023-06-13] MEDS: guaiFENesin/DM ER PO SCH ×2 (08:38→22:09)
[2023-06-13] MEDS ORDERED: Promethazine HCl 12.5 MG in Sodium Chloride 0.9% 50 ML IVPB PRN (14:39)
[2023-06-13 14:51] LABS: Legionella Urinary Ag Negative (Negative); Strep pneumo Urine Ag NEGATIVE (NEGATIVE)
[2023-06-13] MEDS: Clopidogrel Bisulfate 75 MG TAB PO SCH (22:08)
[2023-06-14 04:59] LABS: #Eosinphils 0.1 thou/uL (0.0-0.7); #Monocytes 0.5 thou/uL (0.11-0.59); #Neutrophils 5.6 thou/uL (1.40-6.50); %Basophils 0.5 % (0.0-1.0); %Eosinophils 1.1 % (0.0-10.0); %Lymphocytes 23.5 % (21.0-51.0); %Monocytes 6.5 % (0.0-10.0); %Neutrophils 67.4 % (42.0-75.0); Hematocrit 32.9 % (36.0-47.0); Hemoglobin 11.3 g/dL (12.0-16.0); Mean Corpuscular HGB CONC 34.3 g/dL (32.0-36.0); Mean Corpuscular Hemoglobin 31.6 pg (27.0-31.0); Mean Corpuscular Volume 91.9 fl (78.0-98.0); Mean Platelet Volume 8.4 fL (7.4-10.4); Platelet Count 320 10x3/uL (130-400); RBC Distribution Width 11.8 % (11.5-14.5); Red Blood Cell (RBC) Count 3.58 mill/uL (4.20-5.40); White Blood Cell (WBC) Count 8.3 10x3/uL (4.8-10.8)
[2023-06-14 05:34] LABS: Anion Gap 11 mmol/L (10-20); BUN (Urea Nitrogen) 13 mg/dL (9.8-20.1); Calc. Creatinine Clearance 71 mL/min (70-130); Calcium 8.5 mg/dL (7.8-10.44); Carbon Dioxide 27 mmol/L (23-31); Chloride 102 mmol/L (98-107); Estimated GFR 91; Glucose 96 mg/dL (83-110); Potassium 3.4 mmol/L (3.5-5.1); Sodium 137 mmol/L (136-145)
[2023-06-14] MEDS ORDERED: Potassium Chloride 20 MEQ TAB PO SCH (08:00)
[2023-06-14] MEDS ORDERED: Magnesium 2 GM/50 ML(in water) 2 GM in Premix 1 BAG IVPB SCH (08:00)
[2023-06-14] MEDS ORDERED: Potassium Chloride 40 MEQ in Premix 1 BAG IVPB SCH (10:00)
[2023-06-14] MEDS ORDERED: D5 1/2 NS w/20 mEq KCL 1,000 ML IV SCH (10:15)
[2023-06-14] MEDS: Benzonatate 100 MG CAP PO SCH ×2 (10:31→17:39)
[2023-06-14] MEDS: Sacubitril 24MG/Valsartan 26 MG TAB PO SCH (10:33)
[2023-06-14] MEDS: Midodrine HCl 5 MG TAB PO SCH (10:35)
[2023-06-14] MEDS: guaiFENesin/DM ER PO SCH (10:37)
[2023-06-14] MEDS: Flecainide 50 MG TAB PO SCH (10:43)
[2023-06-14] MEDS: Cefdinir 300 MG CAP PO SCH (10:43)
[2023-06-14 20:18] VITALS: BP 128/78; TEMP 98.3
== END 2023-06-14 19:55 | DRG 689 ==
LOC: ERS 13:06 → MSONC 16:39
PROVIDERS: ADMIT Internal Medicine; ATTEND Family Medicine
PROC: 0T9B70Z Drainage of Bladder with Drainage Device, Via Natural or Artificial Opening (ICD-10-PCS; principal; 2023-06-08)
DX: N13.6 Pyonephrosis (principal); J69.0 Pneumonitis due to inhalation of food and vomit; E87.1 Hypo-osmolality and hyponatremia; Z88.0 Allergy status to penicillin; Z79.899 Other long term (current) drug therapy; Z90.89 Acquired absence of other organs; I10 Essential (primary) hypertension; I48.91 Unspecified atrial fibrillation; Z82.49 Family history of ischemic heart disease and other diseases of the circulatory system; Z66 Do not resuscitate; R05.9 Cough, unspecified; Z11.52 Encounter for screening for COVID-19
CPT/HCPCS: 36415; 51701; 70450; 70551; 71045; 71250; 74177; 74230; 80048; 80053; 81001; 83605; 83735; 84484; 85025; 87040; 87070; 87081; 87086; 87205; 87449; 87899; 93005; 93010; 96365; J0696; J0780; J1650; J2550; J3475; J3480; J3490; Q9967

== ENCOUNTER 2023-06-30 14:05 | Inpatient (IN) | payer OTHER ==
[2023-06-30 15:35] LABS: #Monocytes 0.9 thou/uL (0.11-0.59); #Neutrophils 6.3 thou/uL (1.40-6.50); %Basophils 0.4 % (0.0-1.0); %Eosinophils 0.4 % (0.0-10.0); %Lymphocytes 18.7 % (21.0-51.0); %Neutrophils 67.8 % (42.0-75.0); Hematocrit 39.4 % (36.0-47.0); Hemoglobin 13.1 g/dL (12.0-16.0); Mean Corpuscular HGB CONC 33.2 g/dL (32.0-36.0); Mean Corpuscular Hemoglobin 31.4 pg (27.0-31.0); Mean Corpuscular Volume 94.5 fl (78.0-98.0); Mean Platelet Volume 8.6 fL (7.4-10.4); Platelet Count 434 10x3/uL (130-400); RBC Distribution Width 12.6 % (11.5-14.5); Red Blood Cell (RBC) Count 4.17 mill/uL (4.20-5.40); White Blood Cell (WBC) Count 9.3 10x3/uL (4.8-10.8)
[2023-06-30] MEDS ORDERED: Ondansetron PF 4 MG/2 ML Vial ONE ×2 (15:50→19:35)
[2023-06-30] MEDS ORDERED: Morphine 4 MG/ML VIAL ONE ×2 (15:50→19:35)
[2023-06-30 16:00] LABS: Troponin I Less than 0.010 ng/mL (< 0.028)
[2023-06-30 16:02] LABS: ALT (SGPT) 18 U/L (8-55); AST (SGOT) 13 U/L (5-34); Albumin 3.6 g/dL (3.4-4.8); Alkaline Phosphatase 185 U/L (40-110); Anion Gap 16 mmol/L (10-20); BUN (Urea Nitrogen) 32 mg/dL (9.8-20.1); Bilirubin, Total 0.3 mg/dL (0.2-1.2); Calc. Creatinine Clearance 0 mL/min (70-130); Calcium 9.5 mg/dL (7.8-10.44); Carbon Dioxide 27 mmol/L (23-31); Chloride 99 mmol/L (98-107); Estimated GFR 73; Glucose 119 mg/dL (83-110); Lipase 43 U/L (8-78); Potassium 3.6 mmol/L (3.5-5.1); Protein, Total 6.6 g/dL (5.8-8.1); Sodium 138 mmol/L (136-145)
[2023-06-30 20:35] LABS: Bacteria/HPF 4+ HPF (None Seen); Bilirubin Negative (Negative); Blood, Urine 3+ (Negative); CAUTI Indications for Culture Dysuria,urgency,freq; Clarity Extra Turbid (Clear); Glucose, Urine (Dipstick) Normal (Negative); Ketone, Urine Negative (Negative); Leukocyte 500 Leu/uL (Negative); Nitrite 1+ (Negative); Protein, Urine (Dipstick) 100 mg/dL (Neg-Trace); RBC/HPF 21-50 HPF (0-3); Specific Gravity, Urine 1.026 (1.002-1.036); Squamous Epithelial None Seen HPF (0-3); Urobilinogen Normal mg/dL (Less than 2); WBC/HPF Greater than 50 HPF (0-3)
[2023-06-30 20:36] LABS: Urine Culture Reflex Yes Yes
[2023-06-30] MEDS ORDERED: Prochlorperazine Maleate 5 MG TAB PO PRN (23:09)
[2023-06-30] MEDS ORDERED: Ondansetron PF 4 MG/2 ML Vial IVP PRN (23:10)
[2023-06-30] MEDS ORDERED: Sodium Chloride 0.9% 1,000 ML IV SCH (23:59)
[2023-07-01 00:12] VITALS: BMI 20.9
[2023-07-01 08:36] VITALS: BP 119/69; TEMP 98.2
[2023-07-01] MEDS ORDERED: Sacubitril 24MG/Valsartan 26 MG TAB PO SCH (09:00)
[2023-07-01] MEDS ORDERED: Flecainide 50 MG TAB PO SCH (09:00)
[2023-07-01] MEDS ORDERED: Midodrine HCl 5 MG TAB PO SCH (09:00)
[2023-07-01] MEDS ORDERED: HYDROcodone/Acetaminophen 5/325 mg Tablet PO PRN (10:11)
[2023-07-01] MEDS ORDERED: Acetaminophen 325 MG TAB PO PRN (10:11)
[2023-07-01] MEDS ORDERED: Morphine 2 MG/ML VIAL SLOW IVP PRN (10:18)
[2023-07-01] MEDS ORDERED: Lorazepam 2 MG/ML VIAL SLOW IVP PRN (10:34)
[2023-07-01] MEDS ORDERED: Clopidogrel Bisulfate 75 MG TAB PO SCH (21:00)
== END 2023-07-01 12:52 | disposition hospice, inpatient (51) | DRG 689 ==
LOC: ERS 14:05 → T4-A 22:56
PROVIDERS: ADMIT Student in an Organized Health Care Education/Training Program; ATTEND Family Medicine
DX: N39.0 Urinary tract infection, site not specified (principal); G93.41 Metabolic encephalopathy; Z88.0 Allergy status to penicillin; I48.91 Unspecified atrial fibrillation; Z90.89 Acquired absence of other organs; Z98.890 Other specified postprocedural states; I10 Essential (primary) hypertension; Z79.899 Other long term (current) drug therapy; Z82.49 Family history of ischemic heart disease and other diseases of the circulatory system; N13.30 Unspecified hydronephrosis; Z66 Do not resuscitate; R62.7 Adult failure to thrive; Z68.21 Body mass index [BMI] 21.0-21.9, adult
CPT/HCPCS: 36415; 74177; 80053; 81001; 83605; 83690; 84484; 85025; 87040; 87077; 87086; 87186; 93005; 96374; 96375; 96376; J2060; J2270; J2272; J2405; J7050; Q9967

== ENCOUNTER 2023-07-01 12:57 | Inpatient (IN) | payer OTHER ==
[2023-07-01] MEDS ORDERED: GLYCOPYRROLATE/PF 0.2 MG/ML VIAL SLOW IVP PRN (16:53)
[2023-07-01] MEDS ORDERED: Haloperidol Lactate 5 MG/ML VIAL SLOW IVP PRN (17:00)
[2023-07-01] MEDS ORDERED: Acetaminophen 325 MG TAB PO PRN (17:00)
[2023-07-01] MEDS ORDERED: Senokot S 8.6-50 MG TAB PO PRN (17:00)
[2023-07-01] MEDS ORDERED: Scopolamine 1 mg/72 hour Patch TOP PRN (17:00)
[2023-07-01] MEDS: Morphine 2 MG/ML VIAL SLOW IVP PRN (18:32)
[2023-07-01] MEDS: Lorazepam 2 MG/ML VIAL SLOW IVP PRN (18:33)
[2023-07-01] MEDS: Flecainide 50 MG TAB PO SCH (22:05)
[2023-07-02] MEDS: Morphine 2 MG/ML VIAL SLOW IVP PRN ×6 (06:20→20:33)
[2023-07-02] MEDS: Clopidogrel Bisulfate 75 MG TAB PO SCH (09:31)
[2023-07-02] MEDS: Flecainide 50 MG TAB PO SCH ×2 (09:31→20:41)
[2023-07-02] MEDS: Lorazepam 2 MG/ML VIAL SLOW IVP PRN (09:34)
[2023-07-02] MEDS: Lorazepam 2 MG/ML VIAL SLOW IVP SCH ×2 (14:21→20:32)
[2023-07-02] MEDS: Ondansetron PF 4 MG/2 ML Vial IVP PRN (14:21)
[2023-07-03] MEDS: Lorazepam 2 MG/ML VIAL SLOW IVP SCH ×4 (06:18→23:54)
[2023-07-03] MEDS: Flecainide 50 MG TAB PO SCH (09:53)
[2023-07-03] MEDS: Clopidogrel Bisulfate 75 MG TAB PO SCH (09:53)
[2023-07-03] MEDS: Morphine 2 MG/ML VIAL SLOW IVP PRN ×2 (11:57→13:26)
[2023-07-03 12:49] VITALS: BMI 20.7
[2023-07-03] MEDS: Ondansetron PF 4 MG/2 ML Vial IVP PRN (14:40)
[2023-07-04] MEDS: Lorazepam 2 MG/ML VIAL SLOW IVP SCH ×4 (05:23→23:57)
[2023-07-04 07:30] VITALS: TEMP 97.9
[2023-07-04] MEDS: Flecainide 50 MG TAB PO SCH (08:41)
[2023-07-04] MEDS: Morphine 2 MG/ML VIAL SLOW IVP PRN ×3 (10:30→23:56)
[2023-07-04] MEDS: Lorazepam 2 MG/ML VIAL SLOW IVP PRN (14:24)
[2023-07-05] MEDS: Lorazepam 2 MG/ML VIAL SLOW IVP SCH ×2 (05:06→12:08)
[2023-07-05 08:54] VITALS: BP 108/64
[2023-07-05] MEDS: Flecainide 50 MG TAB PO SCH (09:06)
[2023-07-05] MEDS: Morphine 2 MG/ML VIAL SLOW IVP PRN ×2 (09:59→12:08)
== END 2023-07-05 12:56 | DRG 951 ==
LOC: T4-A 12:58
PROVIDERS: ADMIT Family Medicine; ATTEND Family Medicine
DX: Z51.5 Encounter for palliative care (principal); G93.41 Metabolic encephalopathy; E46 Unspecified protein-calorie malnutrition; N12 Tubulo-interstitial nephritis, not specified as acute or chronic; I51.81 Takotsubo syndrome; N13.30 Unspecified hydronephrosis; R41.0 Disorientation, unspecified; R10.9 Unspecified abdominal pain; R62.7 Adult failure to thrive; I48.91 Unspecified atrial fibrillation; R13.10 Dysphagia, unspecified; R63.0 Anorexia; Z88.0 Allergy status to penicillin; Z68.20 Body mass index [BMI] 20.0-20.9, adult
CPT/HCPCS: J2060; J2272; J2405